=== PATIENT | female | born 2000 | race Caucasian/White ===

== ENCOUNTER 2018-02-25 19:04 | Emergency (ER) | payer MEDICAID ==
[~2018-02-25] VITALS: Ht 167.6 cm; Wt 62.0 kg
[2018-02-25 21:48] VITALS: BP 142/76
[2018-02-25 22:03] LABS: CLARITY,URINE SLIGHTLY CLOUDY (Clear); COLOR,URINE YELLOW (Yellow); GLUCOSE, URINE NEGATIVE (Neg); KETONES,URINE NEGATIVE (Neg); LEUKOCYTE ESTERASE ,URINE LARGE (Neg); NITRITES, URINE POSITIVE (Neg); OCCULT BLOOD,URINE TRACE-INTACT (Neg); PROTEIN,URINE TRACE mg/dl (Neg); UROBILINOGEN,URINE 0.2 E.U/dL (0.2-1.0)
[2018-02-25 22:04] LABS: UA COLLECTION TYPE CLN CATCH MIDSTREAM
[2018-02-25 22:05] LABS: URINE HCG NEGATIVE (NEG)
[2018-02-25] MEDS ORDERED: NAPR-1154 PO (22:22)
[2018-02-25] MEDS ORDERED: CIPR-230 PO (22:22)
[2018-02-25 22:32] LABS: BACTERIA,URINE 4+ /HPF (Neg); MUCUS STRANDS NONE SEEN /LPF (Neg); RBC,URINE 0-2 /HPF (0-2); SQUAMOUS EPITHELIAL CELL,UR FEW /LPF (FEW); TRANSITIONAL EPI CELLS,URINE FEW /HPF; WBC,URINE TNTC /HPF (0-4)
[2018-02-25 22:34] LABS: WBC CLUMPS,URINE MODERATE /HPF (NEGATIVE)
== END 2018-02-25 22:46 | disposition home or self-care (01) ==
LOC: ER 19:04
DX: N39.0 Urinary tract infection, site not specified (principal); M54.9 Dorsalgia, unspecified; F17.200 Nicotine dependence, unspecified, uncomplicated; Z88.0 Allergy status to penicillin
CPT/HCPCS: 71045; 81001; 81025; 87077; 87088; 87186; 99284

== ENCOUNTER 2019-06-09 13:13 | Outpatient (CLI) | payer MEDICAID ==
[~2019-06-09 13:13] MED LIST: NAPR-1154 PO
== END 2019-06-09 23:59 | disposition home or self-care (01) ==
LOC: CAR 13:13
PROVIDERS: ATTEND Obstetrics & Gynecology
DX: F11.20 Opioid dependence, uncomplicated (principal)
CPT/HCPCS: 93005

== ENCOUNTER 2022-08-17 00:38 | Emergency (ER) | payer MEDICAID ==
[~2022-08-17] VITALS: Ht 162.6 cm; Wt 68.2 kg
[2022-08-17 00:45] VITALS: BP 133/88
== END 2022-08-17 02:23 | disposition home or self-care (01) ==
LOC: ER 00:38
DX: O99.891 Other specified diseases and conditions complicating pregnancy (principal); R00.0 Tachycardia, unspecified; Z3A.24 24 weeks gestation of pregnancy; F17.200 Nicotine dependence, unspecified, uncomplicated; F15.20 Other stimulant dependence, uncomplicated; Z88.0 Allergy status to penicillin
CPT/HCPCS: 99283

== ENCOUNTER 2024-05-05 18:19 | Emergency (ER) | payer MEDICAID ==
[~2024-05-05] VITALS: Ht 162.6 cm; Wt 63.6 kg
[2024-05-05 18:29] VITALS: BP 132/84; PULSE 117; RESP 16; O2SAT 100
[2024-05-05 19:04] LABS: HCG SERUM QL POSITIVE
[2024-05-05 19:32] LABS: BETA HCG,QUANTITATIVE 130997 mIU/ml
[2024-05-05 19:45] VITALS: TEMP 96
== END 2024-05-05 19:47 | disposition home or self-care (01) ==
LOC: ER 18:20
DX: O99.611 Diseases of the digestive system complicating pregnancy, first trimester (principal); R10.32 Left lower quadrant pain; F11.90 Opioid use, unspecified, uncomplicated; F15.90 Other stimulant use, unspecified, uncomplicated; Z88.0 Allergy status to penicillin; Z79.1 Long term (current) use of non-steroidal anti-inflammatories (NSAID); Z72.89 Other problems related to lifestyle; Z3A.11 11 weeks gestation of pregnancy
CPT/HCPCS: 36415; 76815; 84702; 84703; 99284